=== PATIENT | female | born 1955 | race Caucasian/White ===

== ENCOUNTER 2017-12-30 07:49 | Inpatient (IN) | payer OTHER ==
[2017-11-27 14:11] VITALS: BMI 35.0
--- NOTE | 2017-11-27 15:11 | PAT Medication Instructions ---
Service Date Nov 27, 2017. Current Home Medication List Albuterol Sulfate (Proair Respiclick), 2 PUFFS INH QID PRN for RN Aspirin (Aspirin Ec), 81 MG PO QAM Atorvastatin (Lipitor), 10 MG PO QAM Biotin (Biotin 5000), 5 MG PO QAM Chromium (Chromium), 1,000 MCG PO QAM Colesevelam Hcl (Welchol), 625 MG PO BID Esomeprazole Magnesium (Nexium), 40 MG PO QAM Fish Oil ([place]-3), 1-2 CAP PO BID Lisinopril (Zestril), 5 MG PO QAM Meloxicam (Meloxicam), 15 MG PO QAM Metformin Hcl (Glucophage), 850 MG PO BID Pioglitazone Hcl (Pioglitazone Hcl), 45 MG PO QAM Sertraline (Zoloft), 100 MG PO QAM Solifenacin (Vesicare), 5 MG PO QPM Medication Instructions For Your Scheduled Surgery - Hold the following medications 2 weeks prior to surgery: Fish Oil ([place]-3), 1-2 CAP PO BID - Hold the following medications 10 days prior to surgery per your surgeon's instructions: Meloxicam (Meloxicam), 15 MG PO QAM - Hold the following medications 24 hours prior to surgery: Colesevelam Hcl (Welchol), 625 MG PO BID - Hold the following medications the morning of surgery: Biotin (Biotin 5000), 5 MG PO QAM Chromium (Chromium), 1,000 MCG PO QAM Lisinopril (Zestril), 5 MG PO QAM Metformin Hcl (Glucophage), 850 MG PO BID Pioglitazone Hcl (Pioglitazone Hcl), 45 MG PO QAM - Take the following medications the morning of surgery with a sip of water: Albuterol Sulfate (Proair Respiclick), 2 PUFFS INH QID PRN for RN (if needed) Aspirin (Aspirin Ec), 81 MG PO QAM Atorvastatin (Lipitor), 10 MG PO QAM Esomeprazole Magnesium (Nexium), 40 MG PO QAM Sertraline (Zoloft), 100 MG PO QAM - Take the following medications as scheduled the night before surgery: Albuterol Sulfate (Proair Respiclick), 2 PUFFS INH QID PRN for RN (if needed) Metformin Hcl (Glucophage), 850 MG PO BID Solifenacin (Vesicare), 5 MG PO QPM If you have any questions please call us at [phone] or [phone] or [phone]
[2017-11-27 15:31] LABS: BASO % 0.5 %; BASO ABS # 0.04 K/uL (0-0.2); EOS % 1.7 %; EOS ABS # 0.14 K/uL (0-0.5); HEMATOCRIT 40.7 % (37-47); HEMOGLOBIN 13.4 g/dL (12.0-16.0); IG# 0.02 K/uL (0.00-0.02); LYMPH % 17.9 %; LYMPH ABS # 1.45 K/uL (1.2-3.4); MEAN CELL VOLUME 94.2 fL (80-100); MEAN CORPUSCULAR HGB CONC 32.9 g/dl (32-36); MONO % 5.9 %; MONO ABS # 0.48 K/uL (0.11-0.59); NEUT % 73.8 %; NEUT ABS # 5.95 K/uL (1.4-6.5); PLATELET COUNT 298 K/uL (130-400); RED CELL DISTRIBUTION WIDTH CV 13.9 % (11.5-14.5); RED CELL DISTRIBUTION WIDTH SD 47.9 fL (36.4-46.3); WHITE BLOOD COUNT 8.08 K/uL (4.8-10.8)
[2017-11-27 15:41] LABS: ALBUMIN 3.5 gm/dl (3.4-5.0); CALCIUM 9.2 mg/dl (8.5-10.1); CREATININE 0.95 mg/dl (0.60-1.20); INR 0.9 (0.9-1.1); POTASSIUM 4.5 mmol/L (3.5-5.1); PTT PATIENT 24.3 SECONDS (21.0-31.0)
--- NOTE | 2017-11-27 15:59 | DIAGNOSTIC IMAGING REPORT ---
CHEST 2 VIEWS ROUTINE CLINICAL HISTORY: Upper chest COMPARISON STUDY: No previous studies for comparison. FINDINGS: The study is limited from a technical standpoint. The PA film appears over penetrated. The heart is mildly enlarged. There is no focal pulmonary consolidation. An opacity at the left lung base is felt to be atelectatic. There is possible ankylosis of the dorsal spine.[ IMPRESSION: Technically limited study. No active disease in the chest. Electronically signed by: Devyn Montana M.D. 11/27/2017 3:58 PM Dictated Date/Time: 11/27/2017 3:56 PM
[2017-11-28 08:15] LABS: HEMOGLOBIN A1C 7.3 % (4.5-5.6)
--- NOTE | 2017-12-29 19:14 | HISTORY & PHYSICAL EXAMINATION ---
DATE OF ADMISSION: 12/30/2017 CHIEF COMPLAINT: Right knee pain. HISTORY OF PRESENT ILLNESS: This is a 62-year-old female patient of Dr. Guevara, complaining of chronic right knee pain, longstanding, progressively getting worse. The patient failed conservative treatment including intraarticular injections, meloxicam, and the use of a brace and a sleeve. The patient has increased pain with weightbearing activities. The pain does interfere with her activities of daily living. PAST MEDICAL HISTORY: Hypertension, hypercholesterolemia, diabetes mellitus, rheumatoid arthritis, TMJ, acid reflux, obesity. SOCIAL HISTORY: Nonsmoker, nondrinker. PAST SURGICAL HISTORY: Gallbladder surgery, carpal tunnel on both hands. FAMILY HISTORY: Noncontributory. REVIEW OF SYSTEMS: Chronic right knee pain, otherwise denies any shortness of breath, chest pain, nausea, vomiting or any other joint complaints. MEDICATIONS: Actos 45 mg daily, Lipitor 10 mg at bedtime, Prinivil 5 mg daily, magnesium 40 mg daily, Zoloft 1 mg b.i.d., Nasonex 50 mcg two sprays into each nostril daily, Metformin 850 mg b.i.d., aspirin 81 mg daily, Welchol 625 mg b.i.d., meloxicam 15 mg daily, albuterol 108 mcg per puff two four times daily as needed, VESIcare 5 mg daily orally, Biotin 1000 mcg b.i.d., chromium picolinate 500 mcg b.i.d., fish oil 1000 mg three times daily. ALLERGIES: SULFA AND LATEX. PHYSICAL EXAMINATION: GENERAL: Well-developed, well-nourished 62-year-old female, in no acute distress. She is alert and oriented and pleasant. HEENT: Normocephalic, atraumatic. Extraocular motions are intact. Pupils are equal and reactive to light. HEART: Regular rate and rhythm, no murmurs appreciated. LUNGS: Clear. ABDOMEN: Soft and nontender. Bowel sounds present. EXTREMITIES: Right knee reveals -10 to 120 degrees of motion. She has a varus deformity with medial joint line tenderness. There is a mild effusion. She has 4/5 strength. Neurologically and neurovascularly intact in her right lower extremity. DIAGNOSES: Right knee end-stage osteoarthritis, hypertension, hypercholesterolemia, diabetes mellitus, rheumatoid arthritis, TMJ, acid reflux, obesity. PLAN: The patient was advised of her diagnosis. Indications, risks, benefits, postop course have all been reviewed. The patient wished to proceed with right total knee arthroplasty. Necessary consent forms, preoperative testing and clearances will be obtained.
[~2017-12-30] VITALS: Ht 152.4 cm; Wt 83.3 kg
[2017-12-30] MEDS: TRANEXAMIC ACID INJ 1,000 MG x 2 Bags IV SCH ×4 (06:30→10:01)
[~2017-12-30 07:49] MED LIST: ACETAMINOPHEN 500 MG TAB PO SCH; ALBU18002 INH; ASPI81TA28 PO; ATOR10TA82 PO; BIOTCAP2 PO; CANA1TAB PO; CEFAZOLIN 2000MG IV PUSH 15 ML IV SCH; CETI10TA10 PO; CHRO1TAB2 PO; CeleBREX 200 MG CAP PO SCH; FAMOTIDINE 20 MG TAB PO SCH; GABAPENTIN 600 MG PO SCH; LACTATED RINGER'S 1000ML 1,000 ML IV SCH; LISI-729 PO; MELO-83 PO; METF-383 PO; METOCLOPRAMIDE HCL 10 MG TAB PO SCH; NXM/40 PO; OMEG10007 PO; ROPIVACAINE 5MG/ML 30 ML 150 MG, BUPIVACAINE 0.5% MPF INJ 30 ML, EpINEphrine HCL INJ 0.... INFIL SCH; SERT-234 PO; VSC/5 PO; WLC625 PO
[2017-12-30 08:10] VITALS: BP 138/76; PULSE 82; TEMP 36.4; O2SAT 96; Ht 152.4 cm; Wt 83.3 kg
[2017-12-30] MEDS ORDERED: BUPIVACAINE 0.5 % 5 MG/1 ML PF 10ML VIAL ONE (08:29)
[2017-12-30] MEDS ORDERED: MIDAZOLAM HCL 1 MG/ML 2ML VIAL ONE (08:40)
[2017-12-30] MEDS ORDERED: FENTANYL CITRATE INJ 50 MCG/1 ML 2 ML VIAL ONE (08:40)
--- NOTE | 2017-12-30 09:02 | History & Physical Bridge Note ---
H&P Re-Evaluation Bridge Note: I have examined the patient, reviewed the History & Physical and in the interval since the performance of the History & Physical I have noted the following changes of clinical significance: No changes noted
[2017-12-30] MEDS ORDERED: POVIDONE-IODINE OP SOLN 30 ML BTL ONE (09:49)
[2017-12-30] MEDS ORDERED: ORTHO JOINT ANESTHETIC ONE (09:49)
[2017-12-30] MEDS ORDERED: BACITRACIN 50000 UNIT VIAL ONE (09:50)
[2017-12-30] MEDS ORDERED: ATROPINE SULFATE 0.1 MG/ML 5ML SYR IV PRN (10:00)
[2017-12-30] MEDS ORDERED: EpHEDrine SULFATE INJ 50 MG/ML AMP IV PRN (10:00)
[2017-12-30] MEDS ORDERED: FENTANYL CITRATE INJ 50 MCG/1 ML 2 ML VIAL IV PRN (10:00)
[2017-12-30] MEDS ORDERED: ONDANSETRON INJ 2 MG/ML 2 ML VIAL IV PRN ×2 (10:00→12:15)
[2017-12-30] MEDS ORDERED: HYDROmorphone INJ 2 MG/ML SYR/VIAL IV PRN (10:00)
[2017-12-30] MEDS ORDERED: LIDOCAINE HCL 2% 2 ML VIAL (20MG/ML) ONE (10:49)
[2017-12-30] MEDS ORDERED: EpHEDrine SULFATE 50MG/5ML SYR ONE (10:49)
[2017-12-30] MEDS ORDERED: ONDANSETRON INJ 2 MG/ML 2 ML VIAL ONE (10:49)
[2017-12-30] MEDS ORDERED: PROPOFOL IV EMULSION 10 MG/ML 20 ML VIAL ONE (10:49)
--- NOTE | 2017-12-30 11:37 | [facility] Post Operative Brief Note ---
Immediate Operative Summary Operative Date December 30, 2017. Pre-Operative Diagnosis Right Knee End-Stage Osteoarthritis Post-Operative Diagnosis Same as preoperative,chronic acl tear and medial meniscus tear Procedure(s) Performed Right Total Knee Arthroplasty, Cemented Surgeon Dr. Quincy Barton Director Of Consumer Affairs Surgeon(s) Rahul Davis PA-C Estimated Blood Loss 5ml Findings Consistent with Post-Op Diagnosis Specimens A.) Right Knee Bone and Tissue Drains 2 hemovac Anesthesia Type MAC Spinal Regional Complication(s) none Disposition Disposition: Recovery Room / PACU Overlapping Procedure I was present for: the critical portions of procedure.
[2017-12-30] MEDS ORDERED: MoRPHine SULFATE 4 MG/ML 1 ML CARP\\VIAL IV PRN (12:15)
[2017-12-30] MEDS ORDERED: METOCLOPRAMIDE HCL INJ 5 MG/ML 2 ML VIAL IV PRN (12:15)
[2017-12-30] MEDS ORDERED: ALBUTEROL HFA 8 GM INHALER INH PRN (12:15)
[2017-12-30] MEDS ORDERED: ZOLPIDEM TARTRATE 5 MG TAB PO PRN (12:15)
[2017-12-30] MEDS ORDERED: MAGNESIUM HYDROXIDE SUSP 30 ML UDC PO PRN (12:15)
[2017-12-30] MEDS ORDERED: BISACODYL 10 MG SUPP PR PRN (12:15)
[2017-12-30] MEDS ORDERED: SOD PHOSPHATE/SOD BIPHOSPHATE ENEMA 132 ML BTL PR PRN (12:15)
--- NOTE | 2017-12-30 13:02 | DIAGNOSTIC IMAGING REPORT ---
R KNEE 1 OR 2 VIEWS ROUTINE HISTORY: 62 years-old Female AP/LATERAL IN PACU RIGHT KNEE status post right knee total arthroplasty. Degenerative joint disease. COMPARISON: None available TECHNIQUE: 2 views of the right knee FINDINGS: Postoperative changes from right knee total joint arthroplasty with patellar resurfacing. Alignment is satisfactory without periprosthetic fracture or retained foreign body. Anterior midline skin traci are noted along with surgical drain, expected postsurgical soft tissue swelling and deep tissue air. IMPRESSION: Right knee total joint arthroplasty and prior patellar resurfacing without complication identified. The above report was generated using voice recognition software. It may contain grammatical, syntax or spelling errors. Electronically signed by: James Molina M.D. 12/30/2017 1:00 PM Dictated Date/Time: 12/30/2017 12:59 PM
[2017-12-30 13:20] VITALS: BP 106/67; PULSE 82; TEMP 36.3; O2SAT 94
[2017-12-30 13:48] VITALS: BP 117/69; PULSE 77; TEMP 36.5; O2SAT 96
[2017-12-30 14:20] VITALS: BP 136/71; PULSE 79; TEMP 36.7; O2SAT 98
[2017-12-30] MEDS ORDERED: GLUCOSE 10 TABS/TUBE PO PRN (14:30)
[2017-12-30] MEDS ORDERED: DEXTROSE 50% 50 ML SYR IV PRN (14:30)
[2017-12-30] MEDS ORDERED: GLUCAGON FOR INJ 1 MG VIAL SQ PRN (14:30)
[2017-12-30] MEDS ORDERED: CARBOHYDRATES FOR HYPOGLYCEMIA PO PRN (14:30)
[2017-12-30] MEDS ORDERED: GLUCOSE 40% GEL 15 GM TUBE PO PRN (14:30)
--- NOTE | 2017-12-30 14:33 | Anesthesiology Progress Note ---
Anesthesia Post Op Note Date & Time December 30, 2017 at 14:33 Vital Signs Pain Intensity: 0.0 Vital Signs Past 12 Hours Date Time Temp Pulse Resp B/P (MAP) Pulse Ox O2 Delivery O2 Flow Rate FiO2 12/30/17 13:48 36.5 77 16 117/69 (85) 96 Nasal Cannula 2.0 12/30/17 13:20 94 Nasal Cannula 2.0 12/30/17 13:20 36.3 82 18 106/67 (80) 94 Nasal Cannula 2.0 12/30/17 13:20 Nasal Cannula 2.0 12/30/17 13:00 76 16 116/65 95 Nasal Cannula 2 12/30/17 12:50 36.5 78 16 117/75 95 Nasal Cannula 2 12/30/17 12:40 75 16 122/68 95 Nasal Cannula 2 12/30/17 12:30 83 17 125/74 96 Nasal Cannula 2 12/30/17 12:20 78 18 124/71 97 Oxymask 10 12/30/17 12:10 36.9 87 16 131/78 96 Oxymask 10 12/30/17 08:10 36.4 82 18 138/76 96 Room Air Notes Mental Status: alert / awake / arousable, participated in evaluation Pt Amnestic to Procedure: Yes Nausea / Vomiting: adequately controlled Pain: adequately controlled Airway Patency, RR, SpO2: stable & adequate BP & HR: stable & adequate Hydration State: stable & adequate Neuraxial Anesthesia: was administered, sensory block is resolving Anesthetic Complications: no major complications apparent
[2017-12-30] MEDS: ACETAMINOPHEN 500 MG TAB PO SCH ×2 (15:04→23:55)
[2017-12-30] MEDS: VESICARE: ORDER AWAITING ACTION SCH ×2 (15:07→23:53)
--- NOTE | 2017-12-30 15:52 | Medical Consult ---
Consultation Date of Consultation: December 30, 2017. Attending Physician: Quincy Barton M.D. Reason for Consultation: Medical management History of Present Illness This is a 62 year old female with a past medical history of DM2, HTN, HLD, GERD , anxiety - presents for a R knee surgery. Doing well post-operatively. Has no pain, tolerating diet; no nausea/vomiting. No fevers/chills. No abdominal pain. No other issues at this time Social History Smoking Status: Never Smoker Allergies Coded Allergies: Adhesives (Verified Allergy, Severe, red itchy skin=severe, 12/30/17) Sulfa Antibiotics (Verified Allergy, Unknown, RASH, 12/30/17) Current Inpatient Medications Current Inpatient Medications Medications (Trade) Dose Ordered Sig/Danielito Route Start Time Stop Time Status Last Admin Dose Admin Cefazolin Sodium 15 ml @ 3.75 mls/ min PREOP IV 12/30/17 06:00 12/30/17 18:00 12/30/17 10:19 3.75 MLS/MIN Acetaminophen (Tylenol Tab) 1,000 mg PREOP PO 12/30/17 06:00 12/30/17 18:00 12/30/17 08:40 1,000 MG Famotidine (Pepcid Tab) 20 mg PREOP PO 12/30/17 06:00 12/30/17 18:00 12/30/17 08:39 20 MG Gabapentin (Neurontin Cap) 600 mg PREOP PO 12/30/17 06:00 12/30/17 18:00 12/30/17 08:39 600 MG Metoclopramide HCl (Reglan Tab) 10 mg PREOP PO 12/30/17 06:00 12/30/17 18:00 12/30/17 08:40 10 MG Lactated Ringer's 1,000 ml @ 15 mls/hr Q24H IV 12/30/17 06:00 12/30/17 18:00 12/30/17 08:39 15 MLS/HR Atorvastatin Calcium (Lipitor Tab) 10 mg QPM PO 12/30/17 21:00 01/29/18 20:59 Cetirizine HCl (zyrTEC TAB) 10 mg HS PO 12/30/17 21:00 01/29/18 20:59 Lisinopril (Zestril Tab) 5 mg QAM PO 12/31/17 09:00 01/30/18 08:59 Sertraline HCl (Zoloft Tab) 100 mg QAM PO 12/31/17 09:00 01/30/18 08:59 Albuterol (Ventolin Hfa Inhaler) 2 puffs QID PRN INH 12/30/17 12:15 01/29/18 12:14 Miscellaneous Information (Order Awaiting Action) 1 ea QS N/A 12/30/17 16:00 01/29/18 15:59 Miscellaneous Information (Order Awaiting Action) 1 ea QS N/A 12/30/17 16:00 01/29/18 15:59 Sodium Chloride 1,000 ml @ 100 mls/hr Q10H IV 12/30/17 13:44 12/31/17 12:11 Cefazolin Sodium 2000 mg/Syringe 15 ml @ 3.75 mls/ min Q8H IV 12/30/17 18:00 12/31/17 02:03 Oxycodone HCl (Roxicodone Immediate Rel Tab) 1 TABLET FOR PAIN RATING... Q4H PRN PO 12/30/17 12:15 01/13/18 12:14 Morphine Sulfate (MoRPHine SULFATE INJ) FOR PAIN, 2-4MG 2MG FOR P... Q2H PRN IV 12/30/17 12:15 01/13/18 12:14 Acetaminophen (Tylenol Tab) 1,000 mg Q8H PO 12/30/17 16:00 01/29/18 15:59 12/30/17 15:04 1,000 MG Magnesium Hydroxide (Milk Of Magnesia Susp) 30 ml Q6H PRN PO 12/30/17 12:15 01/29/18 12:14 Bisacodyl (Dulcolax Supp) 10 mg DAILY PRN HI 12/30/17 12:15 01/29/18 12:14 Sodium Biphosphate/ Sodium Phosphate (Fleet Enema) 132 ml DAILY PRN HI 12/30/17 12:15 01/29/18 12:14 Docusate Sodium (coLACE CAP) 100 mg BID PO 12/30/17 21:00 01/29/18 20:59 Diphenhydramine HCl (Benadryl Cap) 25 mg Q8H PRN PO 12/30/17 12:15 01/29/18 12:14 Zolpidem Tartrate (Ambien Tab) 5 mg HSZ PRN PO 12/30/17 12:15 01/29/18 12:14 Multivitamins (Multivitamin Tab) 1 tab QAM PO 12/31/17 09:00 01/30/18 08:59 Ondansetron HCl (Zofran Inj) 4 mg Q6H PRN IV 12/30/17 12:15 01/29/18 12:14 Metoclopramide HCl (Reglan Inj) 10 mg Q6H PRN IV 12/30/17 12:15 01/29/18 12:14 Pantoprazole Sodium (Protonix Tab) 40 mg QAM PO 12/31/17 09:00 01/30/18 08:59 Tramadol HCl (Ultram Tab) 1 tablet for pain rating... Q4H PRN PO 12/30/17 12:15 01/29/18 12:14 Aspirin (Ecotrin Tab) 81 mg BID PO 12/30/17 21:00 01/29/18 20:59 Insulin Aspart (novoLOG ASPART) SLIDING SCALE G... ACHS SC 12/30/17 17:15 01/29/18 17:14 Glucose (Glucose 40% Gel) 15-30 GRAMS 15 GRAMS... UD PRN PO 12/30/17 14:30 01/29/18 14:29 Glucose (Glucose Chew Tab) 4-8 Tablets 4 Tabl... UD PRN PO 12/30/17 14:30 01/29/18 14:29 Dextrose (Dextrose 50% 50ML Syringe) 25-50ML 25ML FOR ... UD PRN IV 12/30/17 14:30 01/29/18 14:29 Glucagon (Glucagon Inj) 1 mg UD PRN SQ 12/30/17 14:30 01/29/18 14:29 Carbohydrates (Carbohydrates For Hypoglycemia) 15-30 GRAMS 15 grams if BSG 54-69... UD PRN PO 12/30/17 14:30 01/29/18 14:29 Review of Systems Constitutional: No fever, No chills Respiratory: No cough, No sputum, No shortness of breath, No dyspnea on exertion, No dyspnea at rest, No hemoptysis Cardiovascular: No chest pain, No edema, No palpitations Abdomen: No pain, No nausea, No vomiting, No diarrhea, No constipation, No GI bleeding Musculoskeletal: No joint pain, No muscle pain, No swelling, No calf pain Genitourinary - Female: No dysuria, No urinary frequency, No urinary urgency, No urinary incontinence, No urinary retention, No hematuria Neurologic: No memory loss, No numbness/tingling, No vertigo, No balance problems Psychiatric: No depression symptoms, No anxiety, No insomnia Endocrine: No fatigue Hematologic / Lymphatic: No abnormal bleeding/bruising Integumentary: No rash Allergic / Immunologic: No environmental allergies, No seasonal allergies Physical Exam Date Time Temp Pulse Resp B/P (MAP) Pulse Ox O2 Delivery O2 Flow Rate FiO2 12/30/17 14:20 36.7 79 16 136/71 (92) 98 Nasal Cannula 2.0 12/30/17 13:48 36.5 77 16 117/69 (85) 96 Nasal Cannula 2.0 12/30/17 13:20 94 Nasal Cannula 2.0 12/30/17 13:20 36.3 82 18 106/67 (80) 94 Nasal Cannula 2.0 12/30/17 13:20 Nasal Cannula 2.0 12/30/17 13:00 76 16 116/65 95 Nasal Cannula 2 12/30/17 12:50 36.5 78 16 117/75 95 Nasal Cannula 2 12/30/17 12:40 75 16 122/68 95 Nasal Cannula 2 12/30/17 12:30 83 17 125/74 96 Nasal Cannula 2 12/30/17 12:20 78 18 124/71 97 Oxymask 10 12/30/17 12:10 36.9 87 16 131/78 96 Oxymask 10 12/30/17 08:10 36.4 82 18 138/76 96 Room Air General Appearance: WD/WN, no apparent distress Head: normocephalic, atraumatic Eyes: normal inspection ENT: normal ENT inspection, hearing grossly normal, TMs normal, pharynx normal Neck: supple Respiratory/Chest: chest non-tender, lungs clear, normal breath sounds, no respiratory distress, no accessory muscle use Cardiovascular: regular rate, rhythm, no edema, no gallop, no JVD, no murmur, normal peripheral pulses Abdomen/GI: normal bowel sounds, non tender, soft Back: no CVA tenderness, no muscle spasm Extremities/Musculoskelatal: normal inspection, no calf tenderness, normal capillary refill, no pedal edema, normal range of motion, + pertinent finding (+ wound vac in place) Neurologic/Psych: cloud physicist II-XII nml as tested, no motor/sensory deficits, alert, normal mood/affect, oriented x 3 Skin: normal color, warm/dry, no rash Lymphatic: no adenopathy Laboratory Results Last 24 Hours Test 12/30/17 08:16 12/30/17 08:29 12/30/17 12:14 Bedside Glucose 167 mg/dl 126 mg/dl Hepatitis C Antibody Screen NEG Assessment & Plan This is a 62 year old female with a past medical history of DM2, HTN, HLD, GERD , anxiety - presents for a R knee surgery. R Knee Arthroplasty - pain is controlled - will check labs in AM for H/H, electrolytes - PT/OT - DVT ppx as per ortho DM2 - hold oral agents - Ha1c = 7.3%, well controlled - insulin sliding scale, BSGs ACHS HTN - continue KHAI-I GERD - continue Famotidine DVT ppx - as per ortho FULL CODE
[2017-12-30] MEDS: SODIUM CHLORIDE 0.9% 1000ML 1,000 ML IV SCH (15:58)
[2017-12-30 16:13] VITALS: BP 122/69; PULSE 74; TEMP 36.5; O2SAT 96
--- NOTE | 2017-12-30 17:16 | [facility] Operative Report ---
Operative Report Operative Date December 30, 2017. Pre-Operative Diagnosis Right Knee End-Stage Osteoarthritis Post-Operative Diagnosis Same, medial meniscus tear, chronic ACL tear Procedure(s) Performed Right total knee arthroplasty Surgeon Dr. Quincy Barton Liquor Store Manager Surgeon(s) Rahul Davis PA-C Estimated Blood Loss 5ml Findings As above, varus knee medial compartment grade 4 grade 4 patellofemoral DJD with lateral aligned patella Specimens A.) Right Knee Bone and Tissue Drains 2 hemovac Anesthesia Spinal sedation adductor nerve block orthomix Complication(s) None Disposition Recovery Room / PACU Indications 62-year-old female end-stage arthritis right knee [id number] patellofemoral medial compartment varus knee chronic effusion failed conservative management Description of Procedure The patient was taken to the operating room and anesthetized under spinal sedation adductor nerve block.. Patient was placed supine on the the operating table. A pneumatic tourniquet was placed about the right upper thigh. The knee exam demonstrated varus knee slight flexion contracture chronic synovitis lateral lying patella crepitation range of motion. The involved leg was elevated exsanguinated with Esmarch bandage and the pneumatic tourniquet was raised to 300 millimeters mercury. A longitudinal incision was made across the anterior knee. Skin flaps were elevated. An incision was made into the medial retinaculum and extended up into the mid third of the quadriceps tendon and extended down to the tibial tubercle. Intra-articular findings demonstrated grade 4 DJD medial compartment grade 4 DJD patellofemoral joint, chronic ACL tear, complex knee meniscus tear with radial and bucket-handle component. The knee was exposed by excising cruciate ligaments and menisci. The infrapatellar fat pad was resected. The fat pad over the anterior femur at the upper aspect of the articular surface was resected for placement of the component in that area. A subperiosteal peel lateral release was performed around the patella The [employer] journey 2.0 total knee arthroplasty system was utilized for the procedure. The custom femoral cutting guide was pinned in position. The distal femoral cut was made. The size 4, 5 in 1 cutting block was placed. The anterior posterior and chamfer cuts were made. The knee was extended and a free hand cut technique was performed to the patella. The patella with was measured and the width was reproduced using a 32 patella component. 3 drill holes are made for the patella component pegs. The tibia was then subluxed. The custom tibial cutting block was pinned in position and the proximal tibial cut was made with the oscillating saw. The size 2 tibial trial was externally rotated in line with the tibial tubercle and pinned in position. The punch for the stem was used. The femoral trial was inserted and centered the notch cutting devices were used and the collet was placed. Tibial trials were used for the insert. The size 12 high flex trial gave balanced ligaments through full range of motion. Patella tracking was assessed with range of motion. The patella tracked centrally. The trials were removed. The Orthomix anesthetic cocktail was injected per protocol. The cut bone surfaces and soft tissue were copiously irrigated with antibiotic solution with bacitracin. The final components were cemented with Simplex cement. The final components were for Oxinium posterior stabilized right femoral component to primary tibial baseplate. 12 mm high flex poly-insert and 32 dome patella. While the cement cured the Betadine soak was used per protocol. When the cement cured the knee was copiously irrigated with pulsatile lavage antibiotic solution with bacitracin. 2 drains were brought out laterally connected to Hemovac. The quadriceps tendon and medial retinaculum were closed with interrupted [id number] #1 Vicryl sutures. The knee was taken through full range of motion and repair was secure. The subcutaneous tissues were closed with 2-0 Vicryl sutures. The skin was closed with traci. A sterile dressing was applied. The tourniquet was let down and the patient had good capillary refill to the extremity. The patient tolerated the procedure well. My physician him assistant Rahul GOOD assisted in the procedure including prepping draping leg positioning soft tissue retraction instrument management and assisted in the closure ,dressings application and will participate in postoperative care the patient. I attest to the content of the Intraoperative Record and any orders documented therein. Any exceptions are noted below.
[2017-12-30] MEDS: CEFAZOLIN IV 2,000 MG in SYRINGE 0 ML IV SCH (19:35)
[2017-12-30] MEDS: INSULIN ASPART 100 UNITS/ML 3 ML PEN SC SCH ×2 (20:06→21:31)
[2017-12-30] MEDS: CETIRIZINE HCL 10 MG TAB PO SCH (20:08)
[2017-12-30] MEDS: ASPIRIN 81 MG ECTAB PO SCH (20:08)
[2017-12-30] MEDS: DOCUSATE SODIUM 100 MG CAP PO SCH (20:08)
[2017-12-30] MEDS: ATORVASTATIN 10 MG TAB PO SCH (20:08)
[2017-12-30] MEDS: OXYCODONE HCL IR 5 MG TAB (IMMEDIATE RELEASE) PO PRN (21:37)
[2017-12-30 23:17] VITALS: BP 106/65; PULSE 72; TEMP 36.6; O2SAT 94
[2017-12-31] MEDS: SODIUM CHLORIDE 0.9% 1000ML 1,000 ML IV SCH ×2 (01:36→12:21)
[2017-12-31] MEDS: CEFAZOLIN IV 2,000 MG in SYRINGE 0 ML IV SCH (02:18)
[2017-12-31 03:16] VITALS: BP 99/62; PULSE 75; TEMP 36.9; O2SAT 92
[2017-12-31 06:35] LABS: HEMATOCRIT 35.5 % (37-47); HEMOGLOBIN 11.7 g/dL (12.0-16.0); MEAN CELL VOLUME 95.2 fL (80-100); MEAN CORPUSCULAR HEMOGLOBIN 31.4 pg (25-34); MEAN PLATELET VOLUME 9.7 fL (7.4-10.4); PLATELET COUNT 238 K/uL (130-400); RED CELL DISTRIBUTION WIDTH CV 14.3 % (11.5-14.5); RED CELL DISTRIBUTION WIDTH SD 49.5 fL (36.4-46.3); WHITE BLOOD COUNT 6.57 K/uL (4.8-10.8)
[2017-12-31 07:10] LABS: CALCIUM 7.9 mg/dl (8.5-10.1); CREATININE 1.07 mg/dl (0.60-1.20); POTASSIUM 3.9 mmol/L (3.5-5.1)
[2017-12-31 07:38] VITALS: BP 114/71; PULSE 76; TEMP 37; O2SAT 93
[2017-12-31] MEDS: VESICARE: ORDER AWAITING ACTION SCH ×2 (08:00→17:23)
--- NOTE | 2017-12-31 08:20 | Orthopedic Progress Note ---
Orthopedic Progress Note Date of Service December 31, 2017. Subjective Post OP Day: 1 Reports: feeling well, Denies: chest pain, SOB, nausea / vomiting, light headedness, calf pain Objective calves soft nontender, N/V intact, capillary refill less than 2 sec., dressing C /D/I, A&O x3, toes mobile, hemovac drainage (175/75cc per shift) Date Time Temp Pulse Resp B/P (MAP) Pulse Ox O2 Delivery O2 Flow Rate FiO2 12/31/17 07:38 37.0 76 16 114/71 (85) 93 Room Air 12/31/17 03:16 36.9 75 16 99/62 (74) 92 Room Air 12/30/17 23:55 Room Air 12/30/17 23:17 36.6 72 17 106/65 (79) 94 Room Air 12/30/17 16:13 36.5 74 16 122/69 (86) 96 Room Air 12/30/17 15:00 Nasal Cannula 2.0 12/30/17 14:20 36.7 79 16 136/71 (92) 98 Nasal Cannula 2.0 12/30/17 13:48 36.5 77 16 117/69 (85) 96 Nasal Cannula 2.0 12/30/17 13:20 94 Nasal Cannula 2.0 12/30/17 13:20 36.3 82 18 106/67 (80) 94 Nasal Cannula 2.0 12/30/17 13:20 Nasal Cannula 2.0 12/30/17 13:00 76 16 116/65 95 Nasal Cannula 2 12/30/17 12:50 36.5 78 16 117/75 95 Nasal Cannula 2 12/30/17 12:40 75 16 122/68 95 Nasal Cannula 2 12/30/17 12:30 83 17 125/74 96 Nasal Cannula 2 12/30/17 12:20 78 18 124/71 97 Oxymask 10 12/30/17 12:10 36.9 87 16 131/78 96 Oxymask 10 Laboratory Results 24 Hours: Test 12/31/17 05:50 Hematocrit 35.5 % Hemoglobin 11.7 g/dL Assessment & Plan Assessment: POD#1 SP RIGHT TKA DM Plan: PT/OT DVT PROPH- ASA 81MG BID PAIN MANAGEMENT- ÁNGELA, TYLENOL DC PLANNING- OUTPATIENT PT AT [facility], LIKELY DC IN AM. DC DRESSING/DRAIN IN AM.
[2017-12-31] MEDS: ACETAMINOPHEN 500 MG TAB PO SCH ×3 (08:36→23:14)
[2017-12-31] MEDS: ASPIRIN 81 MG ECTAB PO SCH ×2 (08:37→20:51)
[2017-12-31] MEDS: DOCUSATE SODIUM 100 MG CAP PO SCH ×2 (08:37→20:51)
[2017-12-31] MEDS: SERTRALINE HCL 100 MG TAB PO SCH (08:38)
[2017-12-31] MEDS: PANTOprazole SOD 40 MG TAB PO SCH (08:38)
[2017-12-31] MEDS: MULTIVITAMIN TAB PO SCH (08:38)
[2017-12-31 08:40] VITALS: BP 121/76
[2017-12-31] MEDS: LISINOPRIL 5 MG TAB PO SCH (08:41)
[2017-12-31] MEDS: INSULIN ASPART 100 UNITS/ML 3 ML PEN SC SCH ×4 (08:44→20:54)
[2017-12-31] MEDS: OXYCODONE HCL IR 5 MG TAB (IMMEDIATE RELEASE) PO PRN ×3 (08:45→19:27)
[2017-12-31] MEDS ORDERED: CHROMIUM 1000 MCG PO SCH (09:00)
[2017-12-31] MEDS ORDERED: NON-FORMULARY MEDICATION (Biotin (Biotin 5000) 5 MG) PO SCH (09:00)
[2017-12-31 15:05] VITALS: BP 111/68; PULSE 79; TEMP 36.8; O2SAT 92
[2017-12-31 15:25] VITALS: O2SAT 92
--- NOTE | 2017-12-31 16:57 | Progress Note ---
Subjective Date of Service: December 31, 2017. Subjective Pt evaluation today including: conversation w/ patient, physical exam, lab review, review of studies, review of inpatient medication list Saw/examined the patient in room 304 She's laying comfortably, no pain R wound vac is in place; no other issues with the knee Tolerating her PO intake, no nausea/vomiting/fevers/chills; no SOB Review of Systems Constitutional: No fever, No chills Respiratory: No shortness of breath Abdomen: No pain, No nausea, No vomiting, No diarrhea Musculoskeletal: No joint pain Medications Current Inpatient Medications Medications (Trade) Dose Ordered Sig/Danielito Route Start Time Stop Time Status Last Admin Dose Admin Atorvastatin Calcium (Lipitor Tab) 10 mg QPM PO 12/30/17 21:00 01/29/18 20:59 12/30/17 20:08 10 MG Cetirizine HCl (zyrTEC TAB) 10 mg HS PO 12/30/17 21:00 01/29/18 20:59 12/30/17 20:08 10 MG Lisinopril (Zestril Tab) 5 mg QAM PO 12/31/17 09:00 01/30/18 08:59 12/31/17 08:41 5 MG Sertraline HCl (Zoloft Tab) 100 mg QAM PO 12/31/17 09:00 01/30/18 08:59 12/31/17 08:38 100 MG Albuterol (Ventolin Hfa Inhaler) 2 puffs QID PRN INH 12/30/17 12:15 01/29/18 12:14 Miscellaneous Information (Order Awaiting Action) 1 ea QS N/A 12/30/17 16:00 01/29/18 15:59 Miscellaneous Information (Order Awaiting Action) 1 ea QS N/A 12/30/17 16:00 01/29/18 15:59 Oxycodone HCl (Roxicodone Immediate Rel Tab) 1 TABLET FOR PAIN RATING... Q4H PRN PO 12/30/17 12:15 01/13/18 12:14 12/31/17 13:27 10 MG Morphine Sulfate (MoRPHine SULFATE INJ) FOR PAIN, 2-4MG 2MG FOR P... Q2H PRN IV 12/30/17 12:15 01/13/18 12:14 Acetaminophen (Tylenol Tab) 1,000 mg Q8H PO 12/30/17 16:00 01/29/18 15:59 12/31/17 08:36 1,000 MG Magnesium Hydroxide (Milk Of Magnesia Susp) 30 ml Q6H PRN PO 12/30/17 12:15 01/29/18 12:14 Bisacodyl (Dulcolax Supp) 10 mg DAILY PRN OK 12/30/17 12:15 01/29/18 12:14 Sodium Biphosphate/ Sodium Phosphate (Fleet Enema) 132 ml DAILY PRN OK 12/30/17 12:15 01/29/18 12:14 Docusate Sodium (coLACE CAP) 100 mg BID PO 12/30/17 21:00 01/29/18 20:59 12/31/17 08:37 100 MG Diphenhydramine HCl (Benadryl Cap) 25 mg Q8H PRN PO 12/30/17 12:15 01/29/18 12:14 Zolpidem Tartrate (Ambien Tab) 5 mg HSZ PRN PO 12/30/17 12:15 01/29/18 12:14 Multivitamins (Multivitamin Tab) 1 tab QAM PO 12/31/17 09:00 01/30/18 08:59 12/31/17 08:38 1 TAB Ondansetron HCl (Zofran Inj) 4 mg Q6H PRN IV 12/30/17 12:15 01/29/18 12:14 Metoclopramide HCl (Reglan Inj) 10 mg Q6H PRN IV 12/30/17 12:15 01/29/18 12:14 Pantoprazole Sodium (Protonix Tab) 40 mg QAM PO 12/31/17 09:00 01/30/18 08:59 12/31/17 08:38 40 MG Tramadol HCl (Ultram Tab) 1 tablet for pain rating... Q4H PRN PO 12/30/17 12:15 01/29/18 12:14 Aspirin (Ecotrin Tab) 81 mg BID PO 12/30/17 21:00 01/29/18 20:59 12/31/17 08:37 81 MG Insulin Aspart (novoLOG ASPART) SLIDING SCALE G... ACHS SC 12/30/17 17:15 6/8/18 17:14 12/31/17 13:26 6 UNITS Glucose (Glucose 40% Gel) 15-30 GRAMS 15 GRAMS... UD PRN PO 12/30/17 14:30 01/29/18 14:29 Glucose (Glucose Chew Tab) 4-8 Tablets 4 Tabl... UD PRN PO 12/30/17 14:30 01/29/18 14:29 Dextrose (Dextrose 50% 50ML Syringe) 25-50ML 25ML FOR ... UD PRN IV 12/30/17 14:30 01/29/18 14:29 Glucagon (Glucagon Inj) 1 mg UD PRN SQ 12/30/17 14:30 01/29/18 14:29 Carbohydrates (Carbohydrates For Hypoglycemia) 15-30 GRAMS 15 grams if BSG 54-69... UD PRN PO 12/30/17 14:30 01/29/18 14:29 Objective Vital Signs Date Time Temp Pulse Resp B/P (MAP) Pulse Ox O2 Delivery O2 Flow Rate FiO2 12/31/17 15:25 92 Room Air 12/31/17 15:05 36.8 79 16 111/68 (82) 92 Room Air 12/31/17 08:40 121/76 (91) 12/31/17 07:38 37.0 76 16 114/71 (85) 93 Room Air 12/31/17 07:10 Room Air 12/31/17 03:16 36.9 75 16 99/62 (74) 92 Room Air 12/30/17 23:55 Room Air 12/30/17 23:17 36.6 72 17 106/65 (79) 94 Room Air Physical Exam General Appearance: no apparent distress Respiratory/Chest: lungs clear, normal breath sounds, no respiratory distress, no accessory muscle use Cardiovascular: regular rate, rhythm, no edema, no murmur Neurologic/Psychiatric: no motor/sensory deficits, alert, normal mood/affect Laboratory Results Last 24 Hours Test 12/30/17 17:01 12/30/17 20:54 12/31/17 05:50 12/31/17 08:12 Bedside Glucose 173 mg/dl 164 mg/dl 141 mg/dl White Blood Count 6.57 K/uL Red Blood Count 3.73 M/uL Hemoglobin 11.7 g/dL Hematocrit 35.5 % Mean Corpuscular Volume 95.2 fL Mean Corpuscular Hemoglobin 31.4 pg Mean Corpuscular Hemoglobin Concent 33.0 g/dl RDW Standard Deviation 49.5 fL RDW Coefficient of Variation 14.3 % Platelet Count 238 K/uL Mean Platelet Volume 9.7 fL Sodium Level 138 mmol/L Potassium Level 3.9 mmol/L Chloride Level 107 mmol/L Carbon Dioxide Level 26 mmol/L Anion Gap 5.0 mmol/L Blood Urea Nitrogen 14 mg/dl Creatinine 1.07 mg/dl Est Creatinine Clear Calc Drug Dose 52.8 ml/min Estimated GFR () 64.9 Estimated GFR (Non- 56.0 BUN/Creatinine Ratio 13.2 Random Glucose 129 mg/dl Calcium Level 7.9 mg/dl Test 12/31/17 11:45 Bedside Glucose 174 mg/dl Assessment and Plan This is a 62 year old female with a past medical history of DM2, HTN, HLD, GERD , anxiety - presents for a R knee surgery. R Knee Arthroplasty 12/31 - pain is controlled - continue PT/OT - aspirin 81mg BID for DVT ppx - plan to d/c as per ortho in AM 12/30 - pain is controlled - will check labs in AM for H/H, electrolytes - PT/OT - DVT ppx as per ortho DM2 12/31 - sugars are well controlled at home - continue home regimen on discharge 12/30 - hold oral agents - Ha1c = 7.3%, well controlled - insulin sliding scale, BSGs ACHS HTN - continue KHAI-I GERD - continue Famotidine DVT ppx - as per ortho FULL CODE
[2017-12-31] MEDS: CETIRIZINE HCL 10 MG TAB PO SCH (20:51)
[2017-12-31] MEDS: ATORVASTATIN 10 MG TAB PO SCH (20:51)
[2017-12-31] MEDS: TRAMADOL HCL 50 MG TAB PO PRN (23:13)
[2017-12-31 23:37] VITALS: BP 155/76; PULSE 85; TEMP 37.1; O2SAT 93
[2018-01-01] MEDS: OXYCODONE HCL IR 5 MG TAB (IMMEDIATE RELEASE) PO PRN ×2 (05:42→09:45)
[2018-01-01 06:21] VITALS: BP 148/83; PULSE 85; TEMP 37; O2SAT 92
[2018-01-01 06:27] LABS: HEMATOCRIT 37.1 % (37-47); HEMOGLOBIN 12.3 g/dL (12.0-16.0); MEAN CELL VOLUME 94.9 fL (80-100); MEAN CORPUSCULAR HEMOGLOBIN 31.5 pg (25-34); MEAN CORPUSCULAR HGB CONC 33.2 g/dl (32-36); MEAN PLATELET VOLUME 9.9 fL (7.4-10.4); PLATELET COUNT 281 K/uL (130-400); RED CELL DISTRIBUTION WIDTH CV 14.3 % (11.5-14.5); RED CELL DISTRIBUTION WIDTH SD 49.1 fL (36.4-46.3); WHITE BLOOD COUNT 7.95 K/uL (4.8-10.8)
[2018-01-01] MEDS: VESICARE: ORDER AWAITING ACTION SCH ×2 (07:04)
[2018-01-01 07:08] LABS: CALCIUM 8.7 mg/dl (8.5-10.1); CREATININE 1.02 mg/dl (0.60-1.20)
[2018-01-01] MEDS: MULTIVITAMIN TAB PO SCH (07:45)
[2018-01-01] MEDS: DOCUSATE SODIUM 100 MG CAP PO SCH (07:45)
[2018-01-01] MEDS: SERTRALINE HCL 100 MG TAB PO SCH (07:45)
[2018-01-01] MEDS: ASPIRIN 81 MG ECTAB PO SCH (07:45)
[2018-01-01] MEDS: PANTOprazole SOD 40 MG TAB PO SCH (07:45)
[2018-01-01] MEDS: LISINOPRIL 5 MG TAB PO SCH (07:45)
[2018-01-01] MEDS: ACETAMINOPHEN 500 MG TAB PO SCH (07:45)
[2018-01-01] MEDS: INSULIN ASPART 100 UNITS/ML 3 ML PEN SC SCH (07:50)
[2018-01-01] MEDS: TRAMADOL HCL 50 MG TAB PO PRN (07:51)
--- NOTE | 2018-01-01 08:15 | Orthopedic Progress Note ---
Orthopedic Progress Note Date of Service January 01, 2018. Subjective Post OP Day: 2 Reports: pain controlled w PO medications, Denies: complaints, chest pain, SOB, light headedness, calf pain Additional Notes: Having some nausea last night and this AM, is able to eat small amounts. Objective calves soft nontender, N/V intact, capillary refill less than 2 sec., dressing C /D/I, A&O x3, toes mobile silverlon in tact Date Time Temp Pulse Resp B/P (MAP) Pulse Ox O2 Delivery O2 Flow Rate FiO2 01/01/18 06:21 37.0 85 18 148/83 (104) 92 Room Air 12/31/17 23:37 37.1 85 17 155/76 (102) 93 Room Air 12/31/17 23:15 Room Air 12/31/17 15:25 92 Room Air 12/31/17 15:05 36.8 79 16 111/68 (82) 92 Room Air 12/31/17 08:40 121/76 (91) Laboratory Results 24 Hours: Test 01/01/18 05:20 Hematocrit 37.1 % Hemoglobin 12.3 g/dL Assessment & Plan Assessment: POD#2 SP RIGHT TKA DM Plan: PT/OT DVT PROPH- ASA 81MG BID PAIN MANAGEMENT- ÁNGELA, TYLENOL DC PLANNING- OUTPATIENT PT AT [facility], TODAY Inhouse Planning Pain Management: Ultram, Morphine, PO Tylenol, Oxy IR DVT Prophylaxis: TEDs, SCDs, ASA Discharge Planning Discharge Planning: home with oppt Pain Management: PO Tylenol, Oxy IR DVT Prophylaxis: TEDs, ASA Therapy: Physical Therapy, Occupational Therapy
[2018-01-01] MEDS ORDERED: ACET-24 PO (08:18)
[2018-01-01] MEDS ORDERED: ASPI-320 PO (08:18)
[2018-01-01] MEDS ORDERED: RXC5 PO (08:18)
[2018-01-01] MEDS ORDERED: ONDA8TAB12 PO (08:18)
--- NOTE | 2018-01-01 08:19 | Discharge Instructions ---
Discharge Instructions Date of Service January 01, 2018. Admission Reason for Admission: Right Knee Degenerative Joint Disease Discharge Discharge Diagnosis / Problem: RIGHT TKA Discharge Goals Goal(s): Improve function Activity Recommendations Activity Limitations: as noted below . Instructions / Follow-Up Instructions / Follow-Up ACTIVITY RECOMMENDATIONS: SELF CARE INSTRUCTIONS AFTER TOTAL KNEE REPLACEMENT A. You may need to continue a physical therapy program after discharge from the hospital. There are several options available to you. Your doctor will assist you in selecting the best one for you. 1. An out-patient facility 2 to 3 times a week for therapy or home therapy. 2. Continue working on all exercises taught to you in the hospital. Your goals should be to increase bending of your knee to 90 degrees and beyond and to fully straighten your knee. B. You may progress at your own pace from walking with a walker or crutches to a cane; then to no assistive devices. C. Make walking a part of your daily routine. Be up as much as comfortable with rest periods throughout the day. Rest with leg elevation is very important. Use the ice wrap frequently for the first 3-4 weeks. D. There are no restrictions on activities. You may ride in a car, shop, participate in certified professional ergonomist and all social activities. E. Wear the long elastic stockings (AUR[employer]A hose) 20 hours a day for 2 weeks after surgery. They can be removed several times a day for laundering and for a bath. F. You may shower, no tub baths until cleared by your doctor. SPECIAL CARE INSTRUCTIONS: VERY IMPORTANT TO READ AND REVIEW A. There are a few signs you need to watch for after you are home. Call [facility] if you notice any of the followin. Increased severe knee pain. Some pain is expected especially when you exercise. 2. Increased swelling in your leg or knee; pain or swelling of the calf muscle in either lower leg. 3. Any fluid drainage from the incision. 4. Shortness of breath or chest pain. B. Please call [facility] at if you have any concerns or questions about your operation or recovery. The doctor or his nurse will return your call promptly. C. You must take antibiotics before dental work, bladder, bowel or other surgery. Your doctor will provide you with a permanent care to carry describing this precaution. IMPORTANT: * REMEMBER TO TAKE ASPIRIN, 81 MG, TWICE DAILY FOR 4 WEEKS UNLESS OTHERWISE DIRECTED. THIS IS YOUR BLOOD THINNER. * HIGH RISK PATIENTS MAY BE PRESCRIBED A STRONGER BLOOD THINNER. THIS WILL BE PROVIDED AT DISCHARGE. * CALL IF INCREASED PAIN, REDNESS, DRAINAGE OR FEVER GREATER THAT 101. * WEAR AUR[employer]A HOSE 20 HOURS PER DAY FOR 2 WEEKS. * YOU MAY HAVE A LARGE BAND-AID LIKE DRESSING (SILVERON). THIS WILL REMAIN ON YOUR INCISION FOR 7 DAYS, THEN CAN BE REMOVED. IF INCISION IS LEAKING THROUGH DRESSING, CALL THE OFFICE . FOLLOW UP VISIT: If appointment is not already scheduled: Please call [facility] to make a follow-up appointment for 2 weeks after your surgery at . Current Hospital Diet Patient's current hospital diet: Diabetes Type 2 Diet Discharge Diet Recommended Diet: Diabetes Type 2 Diet Procedures Procedures Performed: Right Total Knee Arthroplasty, Cemented Pending Studies Studies pending at discharge: no Laboratory Results Hemoglobin A1c Test 11/27/17 14:45 Range/Units Estimated Average Glucose 163 mg/dl Hemoglobin A1c 7.3 H 4.5-5.6 % Medical Emergencies . Who to Call and When: Medical Emergencies: If at any time you feel your situation is an emergency, please call 911 immediately. . Non-Emergent Contact Non-Emergency issues call your: Primary Care Provider . "Provider Documentation" section prepared by Rahul Davis. . [place] Drug Monitoring Program Search Results: patient reviewed within database, no issues identified
[2018-01-01 09:23] VITALS: BP 148/83; PULSE 85; TEMP 37; O2SAT 92
== END 2018-01-01 10:20 | disposition home or self-care (01) | DRG 470 ==
LOC: C.ACU 07:49 → C.3E 08:55 → ENRESERV 12:58
PROVIDERS: ADMIT Orthopaedic Surgery Sports Medicine; ATTEND Orthopaedic Surgery Sports Medicine
PROC: 0SRC0J9 Replacement of Right Knee Joint with Synthetic Substitute, Cemented, Open Approach (ICD-10-PCS; principal; 2017-12-30 10:15)
DX: M17.11 Unilateral primary osteoarthritis, right knee (principal); I10 Essential (primary) hypertension; E78.00 Pure hypercholesterolemia, unspecified; E11.9 Type 2 diabetes mellitus without complications; K21.9 Gastro-esophageal reflux disease without esophagitis; E66.9 Obesity, unspecified; M06.9 Rheumatoid arthritis, unspecified; Z79.82 Long term (current) use of aspirin; Z79.84 Long term (current) use of oral hypoglycemic drugs; Z79.899 Other long term (current) drug therapy; Z88.2 Allergy status to sulfonamides; Z91.040 Latex allergy status